=== PATIENT | female | born 1975 | race Caucasian/White ===

== ENCOUNTER → 2017-07-19 | Outpatient (CLI) | payer OTHER ==
[~2017-07-19] VITALS: Ht 165.1 cm; Wt 74.8 kg
[~2017-07-19] MED LIST: ADDERALL30 MG PO; AUGMENTIN80 MG/ML PO; BACTRIM,SEPT1 TABLET PO; CELLCEPT200 MG/ML PO; CELLCEPT500 MG PO; DEXTROAMP-AMPHE30 MG PO; FLO-PRED15 MG/5 ML PO; Magic Mouthwash Garg MM; NEXIUM20 MG PO; PHENERGAN-CODE120 ML PO; PREDNISONE10 M1 PO; PREDNISONE10 MG PO; PREVACID SOLUTA30 MG SL; PREVACID30 MG PO; SUCRALFATE1 GM/10 ML PO; VERIPRED 220 MG/5 ML PO
== END | disposition home or self-care (01) ==
LOC: AMB 11:28
PROC: 0DB68ZX Excision of Stomach, Via Natural or Artificial Opening Endoscopic, Diagnostic (ICD-10-PCS; principal; 2017-07-19)
PROC: 0D718ZZ Dilation of Upper Esophagus, Via Natural or Artificial Opening Endoscopic (ICD-10-PCS; principal; 2017-07-19)
PROC: 0D738ZZ Dilation of Lower Esophagus, Via Natural or Artificial Opening Endoscopic (ICD-10-PCS; principal; 2017-07-19)
PROC: 3E0G8GC Introduction of Other Therapeutic Substance into Upper GI, Via Natural or Artificial Opening Endoscopic (ICD-10-PCS; principal; 2017-07-19)
DX: K22.2 Esophageal obstruction (principal); L43.9 Lichen planus, unspecified; K31.7 Polyp of stomach and duodenum; E78.5 Hyperlipidemia, unspecified; Z88.1 Allergy status to other antibiotic agents; Z88.8 Allergy status to other drugs, medicaments and biological substances
CPT/HCPCS: 88305; 88342 TC; J1100; J2250; J2405; J3010; J3301

== ENCOUNTER → 2017-08-16 | Outpatient (CLI) | payer OTHER ==
[~2017-08-16] VITALS: Ht 165.1 cm; Wt 79.8 kg
== END | disposition home or self-care (01) ==
LOC: AMB 11:37
DX: L43.9 Lichen planus, unspecified (principal); R13.10 Dysphagia, unspecified; K22.2 Esophageal obstruction
CPT/HCPCS: J2250; J3010; J3301